=== PATIENT | male | born 1970 | race Caucasian/White ===

== ENCOUNTER 2021-03-13 09:52 | Emergency (ER) | payer OTHER ==
[~2021-03-13] VITALS: Ht 167.6 cm; Wt 77.3 kg
[2021-03-13 09:57] VITALS: BP 130/76
[2021-03-13] MEDS ORDERED: KETOROLAC TROMETHAMINE 30 MG/ML VIAL IM ONE (11:15)
[2021-03-13] MEDS ORDERED: ATOR20TA86 PO (11:16)
[2021-03-13] MEDS ORDERED: RISP0.5T39 PO (11:16)
[2021-03-13] MEDS ORDERED: DIVA-111 PO (11:16)
[2021-03-13] MEDS ORDERED: DIVA-112 PO (11:16)
== END 2021-03-13 11:35 | disposition home or self-care (01) ==
LOC: EMS 09:52
DX: M10.9 Gout, unspecified (principal)
CPT/HCPCS: 96372; 99283; J1885